=== PATIENT | female | born 1955 | race Caucasian/White ===

== ENCOUNTER 2017-08-11 10:36 | Emergency (ER) | payer OTHER ==
[~2017-08-11] VITALS: Ht 165.1 cm; Wt 74.4 kg
[2017-08-11] MEDS ORDERED: LEXAPRO5 MG (10:51)
[2017-08-11] MEDS ORDERED: AMBIEN5 MG (10:51)
== END 2017-08-11 22:28 | disposition home or self-care (01) ==
LOC: ER 10:36
DX: K58.8 Other irritable bowel syndrome (principal); N39.0 Urinary tract infection, site not specified; R10.32 Left lower quadrant pain

== ENCOUNTER 2017-08-26 08:00 | Day surgery (SDC) | payer OTHER ==
[~2017-08-26 08:00] MED LIST: AMBIEN5 MG; LEXAPRO5 MG
== END 2017-08-26 14:05 | disposition home or self-care (01) ==
LOC: AMB-ENDOS 08:00
DX: D12.2 Benign neoplasm of ascending colon (principal); D12.3 Benign neoplasm of transverse colon; K57.32 Diverticulitis of large intestine without perforation or abscess without bleeding; K64.8 Other hemorrhoids